=== PATIENT | female | born 2000 | race Caucasian/White ===

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

== ENCOUNTER 2018-10-27 11:08 | Emergency (ER) | payer OTHER ==
[2018-10-27 11:13] VITALS: BMI 16.9
--- NOTE | 2018-10-27 12:09 | PDOC ---
History of Present Illness - General Chief Complaint: Vaginal Bleeding Stated Complaint: LOWER ABD PAIN/Miscarriage Time Seen by Provider: 10/27/18 12:07 History Source: Patient Exam Limitations: No Limitations - History of Present Illness Initial Comments: 18 yo F presents to the ER with lower back pain and abdominal cramps after she has been passing clot like material from her vagina for the past two days since Friday. The patient has a picture of what appears to look like a passed fetus which she passed on Friday. She went to her PCP yesterday who said she is probably having a miscarriage and he referred her to Dr. reyes for an OB appointment. She came into the ER today because she wanted to confirm whether or not she was , having a miscarriage or whatever is happening in her body. She denies any nausea or vomiting but endorses lower back pain which was 10/10 on Friday when she passed the clots but is only 6/10 today. Patient is sexually active with one male partner and does not use condoms. She reports frequent STD testing and says they have all been negative. Patient does not take pre- vitamins. Patient has an appointment scheduled with Dr. reyes for . Denies recent fevers, chills, infections, dysuria, headache, or blurry vision. LMP: Aug 20 PCP: Camilo Hdez [phone] EARLY CHILDHOOD WORKER: Dr. Reyes PSH: None reported Social Hx: Denies smoking, drinking, or other substance usage. Allergies: NKA, NKDA Past History - Past Medical History Allergies/Adverse Reactions: Allergies Allergy/AdvReac Type Severity Reaction Status Date / Time No Known Allergies Allergy Verified 10/12/17 14:23 Home Medications: Ambulatory Orders NK [No Known Home Medication] 10/27/18 COPD: No Dialysis: No Hypercholesterolemia: No - Surgical History Cholecystectomy: No - Reproductive History (#): 0 - Immunization History Immunization Up to Date: Yes - Suicide/Smoking/Psychosocial Hx Smoking History: Never smoked Have you smoked in the past 12 months: No Information on smoking cessation initiated: No Hx Alcohol Use: No Drug/Substance Use Hx: No Substance Use Type: None Review of Systems - Review of Systems Able to Perform ROS?: Yes Comments:: CONSTITUTIONAL: Absent: fever, no chills, no fatigue EYES: Absent: visual changes ENT: Absent: ear pain, no sore throat CARDIOVASCULAR: Absent: chest pain, no palpitations RESPIRATORY: Absent: cough, no SOB GI: Present: Abdominal pain Absent: no nausea, no vomiting, no constipation, no diarrhea GENITOURINARY: Present: hematuria Absent: dysuria, no frequency MUSKULOSKELETAL: Present: Back pain Absent: no arthralgia, no myalgia SKIN: Absent: rash NEURO: Absent: headache *Physical Exam - Vital Signs Last Vital Signs Temp Pulse Resp BP Pulse Ox 98.7 F 71 20 112/75 100 10/27/18 11:10 10/27/18 11:10 10/27/18 11:10 10/27/18 11:10 10/27/18 11:10 - Physical Exam Comments: GENERAL: Well-appearing, well-nourished. No apparent distress. HEENT: Normocephalic, atraumatic. PERRL, EOM intact. CARDIOVASCULAR: Normal S1, S2. Regular rate and rhythm. PULMONARY: No evidence of respiratory distress. Lungs clear to auscultation bilaterally. No wheezing, rales or rhonchi. ABDOMEN: Soft, non-distended, non-tender. EXTREMITIES: Normal ROM in all four extremities. No gross deformities. SKIN: Warm, dry. No rash NEUROLOGICAL: No focal neurological deficits. Female Pelvic Exam: positive: cervical os closed, normal adnexa, normal size ovaries, discharge (blood), uterus (normal), vaginal bleeding. negative: normal external exam (There is blood on the external exam), CMT, lesions, Bartholin mass, adnexal tenderness ED Treatment Course - LABORATORY CBC & Chemistry Diagram: 10/27/18 12:32 10/27/18 12:32 - RADIOLOGY Radiograph Interpretation: TVUS: The uterus is normal in size measuring 7.4 x 5.1 x 3.4 cm. No uterine masses are seen. A normal appearing endometrium of 4 mm thickness is identified. There is a trace amount of free fluid within the endometrial cavity. The ovaries are normal in size and texture with arterial flow documented to both ovaries. There is no evidence of adnexal masses. There is a trace amount of free fluid within the cul-de- sac. IMPRESSION: 1. Trace endometrial fluid. 2. Trace free fluid within the cul-de-sac, otherwise normal pelvic sonogram. Please see above discussion. Medical Decision Making - Medical Decision Making 18 yo F presents to the ER with lower back pain and abdominal cramps after she has been passing clot like material from her vagina for the past two days since Friday. The patient has a picture of what appears to look like a passed fetus which she passed on Friday. She went to her PCP yesterday who said she is probably having a miscarriage and he referred her to Dr. reyes for an OB appointment. She came into the ER today because she wanted to confirm whether or not she was , having a miscarriage or whatever is happening in her body. She denies any nausea or vomiting but endorses lower back pain which was 10/10 on Friday when she passed the clots but is only 6/10 today. VS: WNL DDx IBNLT: - inevitable vs missed vs complete, - IUP vs ectopic, ovarian cyst/torsion, rupture, electrolyte/metabolic disturbance. Plan: Labs, Urine, TVUS, IV hydration, analgesia, OB follow up. Labs: HCG negative in urine and blood. Labs unremarkable, normal Hb. Blood Bank -Ab negative, O positive. TVUS: The uterus is normal in size measuring 7.4 x 5.1 x 3.4 cm. No uterine masses are seen. A normal appearing endometrium of 4 mm thickness is identified. There is a trace amount of free fluid within the endometrial cavity. The ovaries are normal in size and texture with arterial flow documented to both ovaries. There is no evidence of adnexal masses. There is a trace amount of free fluid within the cul-de- sac. IMPRESSION: 1. Trace endometrial fluid. 2. Trace free fluid within the cul-de-sac, otherwise normal pelvic sonogram. Please see above discussion. Patient has an appointment scheduled with Dr. reyes for . Patient feels well and her pain was relived after PO Tylenol. Will DC with return precautions and OB FU on with Dr. Reyes *DC/Admit/Observation/Transfer Diagnosis at time of Disposition: Vaginal bleeding - Discharge Dispostion Disposition: HOME Condition at time of disposition: Stable Decision to Admit order: No - Referrals Referrals: Daxa Reyes MD [Staff Physician] - - Patient Instructions Printed Discharge Instructions: DI for Vaginal Bleeding Additional Instructions: You came into the Er after you experienced bleeding from your vagina. We looked at your blood and urine and found no abnormalities. Our Lab showed us that you are not currently . Please make sure to goto your doctor's appointment with Dr. Reyes this coming to make sure your bleeding has stopped, you are not in any pain , and you are being taken care of. Come back to the ER immediately if your pain worsens, you start bleeding alot, or have any other new or worsening concerns. Thank you for coming to the [facility]. We hope you feel better soon! Print Language: GEORGIAN - Post Discharge Activity
[2018-10-27] MEDS ORDERED: SODIUM CHLORIDE 1,000 ML IV STA (12:18)
[2018-10-27] MEDS ORDERED: ACETAMINOPHEN 325 MG TABLET (FP) PO ONE (12:20)
[2018-10-27] MEDS ORDERED: ACETAMINOPHEN 325 MG TABLET (FP) ONE (12:37)
[2018-10-27 12:42] LABS: BASO % 0.4 % (0-2.0); EOS % 1.7 % (0-4.5); EPI CELLS 9.3 /HPF (0-5/HPF); HEMATOCRIT 42.3 % (32.4-45.2); HEMOGLOBIN 14.4 GM/dL (10.7-15.3); LYMPH % 37.5 % (8-40); MCHC 34.1 g/dl (32.0-36.0); MEAN CELL VOLUME 93.9 fl (80-96); MEAN PLT VOLUME 8.9 fl (7.5-11.1); MONO % 8.9 % (3.8-10.2); NEUT % 51.5 % (42.8-82.8); PH,URINE 5.5 (5.0-8.0); PLATELET COUNT 225 K/MM3 (134-434); RDW 13.7 % (11.6-15.6); URINE APPEARANCE CLEAR; URINE BACTERIA 130.9 /hpf (NEGATIVE); URINE BILIRUBIN NEGATIVE (NEGATIVE); URINE CASTS 5 /lpf (0-8); URINE COLOR YELLOW; URINE GLUCOSE (UA) NEGATIVE (NEGATIVE); URINE KETONE NEGATIVE (NEGATIVE); URINE LEUK ESTERASE TRACE (NEGATIVE); URINE NITRITE NEGATIVE (NEGATIVE); URINE PROTEIN NEGATIVE (NEGATIVE); URINE RBC 1 /hpf (0-4); URINE UROBILINOGEN 0.2 mg/dL (0.2-1.0); URINE WBC 2 /hpf (0-5); WHITE BLOOD COUNT 5.2 K/mm3 (4.0-10.0)
[2018-10-27 12:43] LABS: HCG,QUALITATIVE URINE Negative
[2018-10-27 13:02] LABS: INR 1.08 (0.83-1.09); PROTHROMBIN TIME (PATIENT) 12.8 SEC (9.7-13.0)
[2018-10-27 13:22] LABS: ALBUMIN 4.6 g/dl (3.4-5.0); ALK PHOS 89 U/L (45-117); ANION GAP 6 MMOL/L (8-16); BILIRUBIN,TOTAL 0.4 mg/dL (0.2-1); BLOOD UREA NITROGEN 11 mg/dL (7-18); CALCIUM 9.9 mg/dL (8.5-10.1); CHLORIDE 107 mmol/L (98-107); CO2 24 mmol/L (21-32); CREATININE 0.7 mg/dL (0.55-1.3); GLUCOSE,RANDOM 86 mg/dL (74-106); SGOT/AST 22 U/L (15-37); SGPT/ALT 25 U/L (13-61); SODIUM 138 mmol/L (136-145); TOT PROT 8.6 g/dl (6.4-8.2)
[2018-10-27 14:42] VITALS: BP 115/70; PULSE 68; TEMP 98.1
--- NOTE | 2018-10-27 14:45 | PDOC ---
Attending Attestation - Resident Resident Name: Harshad Sanchez - ED Attending Attestation I have performed the following: I have examined & evaluated the patient, The case was reviewed & discussed with the resident, I agree w/resident's findings & plan - HPI HPI: 10/27/18 14:43 18y/o F LMP 2/, not today with DUB with clots. - Physicial Exam PE: 10/27/18 14:43 VSS, well appearing and ambulating heart regular, lungs clear abd benign, pelvic per resident - Medical Decision Making 10/27/18 14:44 18y/o F with heavy vaginal bleeding, HD stable with benign abd exam. negative both qualitative and quantitative received control injection about 4 weeks ago, making this her likely scheduled menses evus normal has f/u arranged with Dr. Reyes, understands return criteria
== END 2018-10-27 14:44 | disposition home or self-care (01) ==
LOC: JER 11:08
PROC: 3E0337Z Introduction of Electrolytic and Water Balance Substance into Peripheral Vein, Percutaneous Approach (ICD-10-PCS; principal; 2018-10-27)
DX: N93.8 Other specified abnormal uterine and vaginal bleeding (principal)
CPT/HCPCS: 36415; 76830-TC; 80053; 81003; 84702; 84703; 85025; 85610; 86850; 86900; 86901; 96360; 99283-25; J7030

== ENCOUNTER 2018-11-20 19:02 | Emergency (ER) | payer OTHER ==
[2018-11-20 19:07] VITALS: TEMP 98.1; BMI 17.6
--- NOTE | 2018-11-20 19:07 | PDOC ---
Rapid Medical Evaluation Chief Complaint: Chest Pain Time Seen by Provider: 11/20/18 19:03 Medical Evaluation: Allergies Allergy/AdvReac Type Severity Reaction Status Date / Time No Known Allergies Allergy Verified 10/12/17 14:23 11/20/18 19:04 I have performed a brief in-person evaluation of this patient. The patient presents with a chief complaint of: chest pain with palpitations, was eating at the time - no hx of cardiac disease. Pertinent physical exam findings: tachycardic/ tearful. lungs clear I have ordered the following: UcG, EKG The patient will proceed to the ED for further evaluation. 11/20/18 19:07 Discharge Disposition - Diagnosis Tachycardia - Referrals - Patient Instructions - Post Discharge Activity
--- NOTE | 2018-11-20 21:18 | PDOC ---
History of Present Illness - History of Present Illness Initial Comments: 11/20/18 21:17 Ms. Lopez is a 18 yo female w/ pmh of HLD who presents for evaluation of 10 minute episode of palpitations with concurrent chest pain (now resolved). Patient also reports she took deep breaths along with this pain. Patient reports this happened once before a month ago. Patient denies any family history of early cardiac problems or sudden . Reports pain /palpitations have improved at this time. The patient denies headache and dizziness. Denies fever, chills, nausea, vomit, diarrhea and constipation. Denies dysuria, frequency, urgency and hematuria. <Vishal Denis - Last Filed: 11/20/18 23:49> <Lazaro Graham - Last Filed: 11/21/18 00:00> - General Chief Complaint: Tachycardia Stated Complaint: CHEST PAIN/RACING HEARTBEAT/DIFFICULTY BREATHING Time Seen by Provider: 11/20/18 19:03 Past History - Past Medical History COPD: No Dialysis: No Hypercholesterolemia: No - Surgical History Cholecystectomy: No - Reproductive History (#): 0 - Immunization History Immunization Up to Date: Yes - Suicide/Smoking/Psychosocial Hx Smoking History: Never smoked Have you smoked in the past 12 months: No Hx Alcohol Use: No Drug/Substance Use Hx: No Substance Use Type: None <Vishal Denis - Last Filed: 11/20/18 23:49> <Lazaro Graham - Last Filed: 11/21/18 00:00> - Past Medical History Allergies/Adverse Reactions: Allergies Allergy/AdvReac Type Severity Reaction Status Date / Time No Known Allergies Allergy Verified 11/20/18 19:07 Home Medications: Ambulatory Orders Nitrofurantoin Monohyd/M-Cryst [Macrobid -] 100 mg PO BID #14 capsule 11/20/18 Review of Systems - Review of Systems Comments:: 11/20/18 21:19 GENERAL/CONSTITUTIONAL: No fever or chills. No weakness. HEAD, EYES, EARS, NOSE AND THROAT: No change in vision. No ear pain or discharge. No sore throat. CARDIOVASCULAR: +Palpitations w/ "deep breaths" and chest pain as described ( now resolved) RESPIRATORY: No cough, wheezing, or hemoptysis. GASTROINTESTINAL: No nausea, vomiting, diarrhea or constipation. GENITOURINARY: No dysuria, frequency, or change in urination. MUSCULOSKELETAL: No joint or muscle swelling or pain. No neck or back pain. SKIN: No rash NEUROLOGIC: No headache, vertigo, loss of consciousness, or change in strength/ sensation. ENDOCRINE: No increased thirst. No abnormal weight change HEMATOLOGIC/LYMPHATIC: No anemia, easy bleeding, or history of blood clots. ALLERGIC/IMMUNOLOGIC: No hives or skin allergy. <Vishal Denis - Last Filed: 11/20/18 23:49> *Physical Exam - Vital Signs Last Vital Signs Temp Pulse Resp BP Pulse Ox 98.1 F 144 H 22 H 156/90 99 11/20/18 19:04 11/20/18 19:04 11/20/18 19:04 11/20/18 19:04 11/20/18 19:04 - Physical Exam Comments: 11/20/18 21:19 GENERAL: Awake, alert, and fully oriented, in no acute distress HEAD: No signs of trauma, normocephalic, atraumatic EYES: PERRLA, EOMI, sclera anicteric, conjunctiva clear ENT: Auricles normal inspection, hearing grossly normal, nares patent, oropharynx clear without exudates. Moist mucosa NECK: Normal ROM, supple, no lymphadenopathy, JVD, or masses LUNGS: No distress, speaks full sentences, clear to auscultation bilaterally HEART: Regular rate and rhythm, normal S1 and S2, no murmurs, rubs or gallops, peripheral pulses normal and equal bilaterally. ABDOMEN: Soft, nontender, normoactive bowel sounds. No guarding, no rebound. No masses EXTREMITIES: Normal inspection, Normal range of motion, no edema. No clubbing or cyanosis. NEUROLOGICAL: Cranial nerves II through XII grossly intact. Normal speech, normal gait, no focal sensorimotor deficits SKIN: Warm, Dry, normal turgor, no rashes or lesions noted. <Vishal Denis - Last Filed: 11/20/18 23:49> - Vital Signs Last Vital Signs Temp Pulse Resp BP Pulse Ox 98.1 F 81 15 122/88 98 11/20/18 19:04 11/20/18 23:05 11/20/18 23:05 11/20/18 23:05 11/20/18 23:05 <Lazaro Graham - Last Filed: 11/21/18 00:00> ED Treatment Course - LABORATORY CBC & Chemistry Diagram: 11/20/18 22:00 11/20/18 22:00 <Vishal Denis - Last Filed: 11/20/18 23:49> - LABORATORY CBC & Chemistry Diagram: 11/20/18 22:00 11/20/18 22:00 - ADDITIONAL ORDERS Additional order review: Laboratory Results 11/20/18 11/20/18 11/20/18 23:00 22:03 22:00 Sodium 139 Potassium 3.8 Chloride 110 H Carbon Dioxide 22 Anion Gap 8 BUN 16 Creatinine 0.7 Est GFR (CKD-EPI)AfAm 144.56 Est GFR (CKD-EPI)NonAf 124.72 Random Glucose 116 H Calcium 9.4 Total Bilirubin 0.3 AST 13 L ALT 24 Alkaline Phosphatase 80 Creatine Kinase 91 Troponin I < 0.02 < 0.02 Total Protein 7.3 Albumin 4.1 Urine Color Yellow Urine Appearance Cloudy Urine pH 5.5 Ur Specific [place] 1.023 Urine Protein Negative Urine Glucose (UA) Trace Urine Ketones Negative Urine Blood 3+ H Urine Nitrite Negative Urine Bilirubin Negative Urine Urobilinogen 0.2 Ur Leukocyte Esterase 3+ H Urine WBC (Auto) 116 Urine RBC (Auto) 3 Urine Casts (Auto) 48 U Epithel Cells (Auto) 6.5 Urine Bacteria (Auto) 322.3 Urine HCG, Qual Negative 11/20/18 22:00 RBC 4.13 MCV 93.4 MCHC 33.8 RDW 13.3 MPV 8.8 Neutrophils % 59.0 Lymphocytes % 31.9 Monocytes % 7.5 Eosinophils % 1.2 Basophils % 0.4 <Lazaro Graham - Last Filed: 11/21/18 00:00> Medical Decision Making - Medical Decision Making 11/20/18 21:40 Ms. Lopez is a 18 yo female w/ pmh as described who presents for evaluation of symptoms c/w ACS vs. anxiety attack vs. anemia. Patient will be evaluated with EKG and cardiac labs. 11/20/18 23:49 Patient EKG concerning for T wave inversion in V2. Patient evaluated with 2 troponins with no concerning findings; EKG unchanged. Patient noted to have UTI as below. Discussed with patient that she should f/u w/ cardiology and sent Rx for ABX to patient's pharmacy. No concern for acute process at this time. Discharging to home. Laboratory Results - last 24 hr 11/20/18 11/20/18 11/20/18 22:00 22:00 22:03 WBC 7.1 RBC 4.13 Hgb 13.0 Hct 38.6 MCV 93.4 MCH 31.6 MCHC 33.8 RDW 13.3 Plt Count 237 MPV 8.8 Absolute Neuts (auto) 4.2 Neutrophils % 59.0 Lymphocytes % 31.9 Monocytes % 7.5 Eosinophils % 1.2 Basophils % 0.4 Nucleated RBC % 0 Sodium 139 Potassium 3.8 Chloride 110 H Carbon Dioxide 22 Anion Gap 8 BUN 16 Creatinine 0.7 Est GFR (CKD-EPI)AfAm 144.56 Est GFR (CKD-EPI)NonAf 124.72 Random Glucose 116 H Calcium 9.4 Total Bilirubin 0.3 AST 13 L ALT 24 Alkaline Phosphatase 80 Creatine Kinase 91 Troponin I < 0.02 Total Protein 7.3 Albumin 4.1 Urine Color Yellow Urine Appearance Cloudy Urine pH 5.5 Ur Specific [place] 1.023 Urine Protein Negative Urine Glucose (UA) Trace Urine Ketones Negative Urine Blood 3+ H Urine Nitrite Negative Urine Bilirubin Negative Urine Urobilinogen 0.2 Ur Leukocyte Esterase 3+ H Urine WBC (Auto) 116 Urine RBC (Auto) 3 Urine Casts (Auto) 48 U Epithel Cells (Auto) 6.5 Urine Bacteria (Auto) 322.3 Urine HCG, Qual Negative 11/20/18 23:00 WBC RBC Hgb Hct MCV MCH MCHC RDW Plt Count MPV Absolute Neuts (auto) Neutrophils % Lymphocytes % Monocytes % Eosinophils % Basophils % Nucleated RBC % Sodium Potassium Chloride Carbon Dioxide Anion Gap BUN Creatinine Est GFR (CKD-EPI)AfAm Est GFR (CKD-EPI)NonAf Random Glucose Calcium Total Bilirubin AST ALT Alkaline Phosphatase Creatine Kinase Troponin I < 0.02 Total Protein Albumin Urine Color Urine Appearance Urine pH Ur Specific [place] Urine Protein Urine Glucose (UA) Urine Ketones Urine Blood Urine Nitrite Urine Bilirubin Urine Urobilinogen Ur Leukocyte Esterase Urine WBC (Auto) Urine RBC (Auto) Urine Casts (Auto) U Epithel Cells (Auto) Urine Bacteria (Auto) Urine HCG, Qual <Vishal Denis - Last Filed: 11/20/18 23:49> *DC/Admit/Observation/Transfer <Vishal Denis - Last Filed: 11/20/18 23:49> <Lazaro Graham - Last Filed: 11/21/18 00:00> Diagnosis at time of Disposition: Tachycardia Chest pain Qualifiers: Chest pain type: unspecified Qualified Code(s): R07.9 - Chest pain, unspecified - Discharge Dispostion Disposition: HOME - Prescriptions Prescriptions: Nitrofurantoin Monohyd/M-Cryst [Macrobid -] 100 mg PO BID #14 capsule - Referrals Referrals: ON STAFF,NOT [Primary Care Provider] - Jorge Og MD [Staff Physician] - - Patient Instructions Printed Discharge Instructions: DI for Urinary Tract Infection (UTI) Additional Instructions: You were evaluated today in the ER for your palpitations and found to have a UTI. We sent a prescription to your pharmacy. Please take all medications as proscribed. We also noted you to have some EKG changes and recommend you follow- up with primary care provider early next week for further evaluation. You should see a securities trader for further evaluation of your palpitations. You may need something called a "Holter monitor" to make a diagnosis. We have attached cardiology information you may use if desired to establish care. Return to ER if any further chest pain, fever, chills, or other concerning symptoms. - Post Discharge Activity
[2018-11-20 22:06] LABS: BASO % 0.4 % (0-2.0); EOS % 1.2 % (0-4.5); HEMATOCRIT 38.6 % (32.4-45.2); LYMPH % 31.9 % (8-40); MCH 31.6 pg (25.7-33.7); MCHC 33.8 g/dl (32.0-36.0); MEAN CELL VOLUME 93.4 fl (80-96); MEAN PLT VOLUME 8.8 fl (7.5-11.1); MONO % 7.5 % (3.8-10.2); PLATELET COUNT 237 K/MM3 (134-434); RBC 4.13 M/mm3 (3.60-5.2); RDW 13.3 % (11.6-15.6); WHITE BLOOD COUNT 7.1 K/mm3 (4.0-10.0)
[2018-11-20 22:12] LABS: HCG,QUALITATIVE URINE Negative
[2018-11-20 22:13] LABS: EPI CELLS 6.5 /HPF (0-5/HPF); PH,URINE 5.5 (5.0-8.0); URINE APPEARANCE CLOUDY; URINE BACTERIA 322.3 /hpf (NEGATIVE); URINE BILIRUBIN NEGATIVE (NEGATIVE); URINE CASTS 48 /lpf (0-8); URINE COLOR YELLOW; URINE GLUCOSE (UA) TRACE (NEGATIVE); URINE KETONE NEGATIVE (NEGATIVE); URINE LEUK ESTERASE 3+ (NEGATIVE); URINE NITRITE NEGATIVE (NEGATIVE); URINE PROTEIN NEGATIVE (NEGATIVE); URINE RBC 3 /hpf (0-4); URINE UROBILINOGEN 0.2 mg/dL (0.2-1.0); URINE WBC 116 /hpf (0-5)
[2018-11-20 22:35] LABS: ALBUMIN 4.1 g/dl (3.4-5.0); ALK PHOS 80 U/L (45-117); ANION GAP 8 MMOL/L (8-16); BILIRUBIN,TOTAL 0.3 mg/dL (0.2-1); BLOOD UREA NITROGEN 16 mg/dL (7-18); CALCIUM 9.4 mg/dL (8.5-10.1); CHLORIDE 110 mmol/L (98-107); CO2 22 mmol/L (21-32); CREATININE 0.7 mg/dL (0.55-1.3); GLUCOSE,RANDOM 116 mg/dL (74-106); POTASSIUM 3.8 mmol/L (3.5-5.1); SGOT/AST 13 U/L (15-37); SGPT/ALT 24 U/L (13-61); SODIUM 139 mmol/L (136-145); TOT PROT 7.3 g/dl (6.4-8.2)
--- NOTE | 2018-11-20 22:48 | PDOC ---
Documentation entered by Renée Felder SCRIBE, acting as scribe for Lazaro Graham MD. Lazaro Graham MD: This documentation has been prepared by the Emerita lora Daisy, SCRIBE, under my direction and personally reviewed by me in its entirety. I confirm that the documentation accurately reflects all work, treatment, procedures, and medical decision making performed by me. Attending Attestation - Resident Resident Name: BharathverenapaoHoraceVishal - ED Attending Attestation I have performed the following: I have examined & evaluated the patient, The case was reviewed & discussed with the resident, I agree w/resident's findings & plan, Exceptions are as noted - HPI HPI: 11/20/18 21:44 The patient is a 18YOF with a PMH of HLD who presents to the ER for evaluation of sudden onset palpitations. Pt states she was eating dinner when the symptoms started. She reports feeling her heart racing quickly. She also endorses chest pain and SOB. Denies lightheadedness or LOC. She states the symptoms lasted approximately 10 minutes and resolved on its own. Pt states this is the 3rd time she has had an episode like this. She states the first two times lasted longer than this one and felt the same. Pt's symptoms resolved in the ED prior to EKG being done. She currently has no complaints. Denies CP/SOB/palpitations. Allergies: NKDA - Physicial Exam PE: 11/20/18 22:45 "GENERAL: Awake, alert, and fully oriented, in no acute distress. HEAD: No signs of trauma EYES: PERRLA, EOMI, sclera anicteric, conjunctiva clear ENT: Auricles normal inspection, hearing grossly normal, nares patent, oropharynx clear without exudates. Moist mucosa NECK: Nontender, no stepoffs, Normal ROM, supple, no lymphadenopathy, JVD, or masses LUNGS: Breath sounds equal, clear to auscultation bilaterally. No wheezes, and no crackles HEART: Regular rate and rhythm, normal S1 and S2, no murmurs, rubs or gallops ABDOMEN: Soft, nontender, normoactive bowel sounds. No guarding, no rebound. No masses EXTREMITIES: Normal range of motion, no edema. No clubbing or cyanosis. No cords, erythema, or tenderness NEUROLOGICAL: Cranial nerves II through XII intact. 5/5 strength and sensation in all extremities, Normal speech, normal gait, normal cerebellar function SKIN: Warm, Dry, normal turgor, no rashes or lesions noted. - Medical Decision Making 11/20/18 22:45 18 F with transient episode of palpitations + CP + SOB. Suspect paroxysmal SVT or other tachyarrhythmia. Pt has no cardiac history, so ventricular arrhythmia unlikely. Pt with normal vitals in ED currently. EKG shows sinus tach at rate 101. - Labs - Tele monitor
[2018-11-20] MEDS ORDERED: NITROFURANTOIN MACROCRYSTAL 50 MG CAPSULE (FP) PO SCH (23:45)
[2018-11-20] MEDS ORDERED: NITROFURANTOIN MACROCRYSTAL 50 MG CAPSULE (FP) ONE (23:59)
[2018-11-21 00:03] VITALS: BP 115/85
[2018-11-21 00:04] VITALS: PULSE 90
--- NOTE | 2018-11-21 11:00 | EKG ---
Test Reason : Blood Pressure : / mmHG Vent. Rate : 081 BPM Atrial Rate : 081 BPM P-R Int : 148 ms QRS Dur : 088 ms QT Int : 364 ms P-R-T Axes : 049 055 048 degrees QTc Int : 422 ms NORMAL SINUS RHYTHM WITH SINUS ARRHYTHMIA INCOMPLETE RBBB WHEN COMPARED WITH ECG OF 20-NOV-2018 19:07, NO SIGNIFICANT CHANGE WAS FOUND Confirmed by COLE DOUGLASS MD ([id number]) on 11/21/2018 10:59:29 AM Referred By: Confirmed By:COLE DOUGLASS MD
--- NOTE | 2018-11-21 11:01 | EKG ---
Test Reason : Blood Pressure : / mmHG Vent. Rate : 101 BPM Atrial Rate : 101 BPM P-R Int : 142 ms QRS Dur : 080 ms QT Int : 334 ms P-R-T Axes : 056 043 041 degrees QTc Int : 433 ms SINUS TACHYCARDIA POSSIBLE LEFT ATRIAL ENLARGEMENT NONSPECIFIC T WAVE ABNORMALITY RSR' OR QR PATTERN IN V1 SUGGESTS RIGHT VENTRICULAR CONDUCTION DELAY ABNORMAL ECG NO PREVIOUS ECGS AVAILABLE Confirmed by COLE DOUGLASS MD ([id number]) on 11/21/2018 11:01:24 AM Referred By: Confirmed By:COLE DOUGLASS MD
== END 2018-11-21 00:05 | disposition home or self-care (01) ==
LOC: JER 19:02
DX: R07.9 Chest pain, unspecified (principal); R00.0 Tachycardia, unspecified
CPT/HCPCS: 36415; 80053; 81003; 82550; 84443; 84484; 84703; 85025; 87086; 87186; 93005; 93010; 99283-25

== ENCOUNTER 2019-04-01 21:35 | Emergency (ER) | payer OTHER ==
--- NOTE | 2019-04-01 21:52 | PDOC ---
Rapid Medical Evaluation Chief Complaint: Headache Time Seen by Provider: 04/01/19 21:50 Medical Evaluation: Allergies Allergy/AdvReac Type Severity Reaction Status Date / Time No Known Allergies Allergy Verified 04/01/19 21:50 04/01/19 21:50 18 year old female severe headache started an hour. patient also reports dizziness. reports some blurred vision PE; patient alert ox3 A: headache P: urine Discharge Disposition - Diagnosis Headache Qualifiers: Headache type: unspecified Headache chronicity pattern: acute headache Intractability: not intractable Qualified Code(s): R51 - Headache - Referrals - Patient Instructions - Post Discharge Activity
[2019-04-01 21:53] VITALS: BP 115/85; PULSE 86; TEMP 98.5; BMI 18.1
[2019-04-01] MEDS ORDERED: MECLIZINE HCL 25 MG TABLET (FP) PO ONE (22:39)
[2019-04-01] MEDS ORDERED: SODIUM CHLORIDE 1,000 ML IV STA (22:39)
[2019-04-01] MEDS ORDERED: KETOROLAC TROMETHAMINE 30 MG/1 ML VIAL IVPUSH ONE (22:39)
[2019-04-01] MEDS ORDERED: METOCLOPRAMIDE HCL INJECTION 10 MG/2 ML VIAL IVPUSH ONE (22:39)
--- NOTE | 2019-04-01 22:40 | PDOC ---
History of Present Illness - General Chief Complaint: Headache Stated Complaint: HEADACHE/DIZZINESS Time Seen by Provider: 04/01/19 21:50 History Source: Patient Exam Limitations: No Limitations - History of Present Illness Initial Comments: 04/01/19 22:40 HISTORY OF PRESENT ILLNESS: 18-year-old woman denies medical history resents emergency department for evaluation of brief episode of room tilting visual disturbance followed by left-sided occipital headache radiating to the frontal head. She reports this episode lasted approximately 5 minutes and then returned to baseline. After 5 minutes at baseline the headache returns Lessing for another 5 minutes. Patient's headache has been waxing and waning every 5 minutes for the past 2 hours when symptoms started. Patient reported a brief episode of nausea but did not vomit. At present patient has no headache, visual disturbances, nausea or vomiting. Patient reports she is on day 2 of her menstrual period and reports normal flow. No recent travel or sick contacts. PAST MEDICAL HISTORY: Denies past medical history SURGICAL HISTORY: Denies ALLERGIES: No known drug allergies REVIEW OF SYSTEMS General/Constitutional: Denies fever or chills. Denies weakness, weight change. HEENT: see HPI Cardiovascular: Denies chest pain or shortness of breath. Respiratory: Denies cough, wheezing, or hemoptysis. Gastrointestinal: Denies nausea, vomiting, diarrhea or constipation. Denies rectal bleeding. Genitourinary: Denies dysuria, frequency, or change in urination. Musculoskeletal: Denies joint or muscle swelling or pain. Denies neck or back pain. Skin and breasts: Denies rash or easy bruising. Neurologic: see HPI Psychiatric: Denies depression or anxiety. Endocrine: Denies increased thirst. Denies abnormal weight change. Hematologic/Lymphatic: Denies anemia, easy bleeding, or history of blood clots. Allergic/Immunologic: Denies hives or skin allergy. Denies latex allergy. PHYSICAL EXAM General Appearance: Well-appearing, appropriately dressed. No apparent distress , no intoxication. HEENT: EOMI, PERRLA, normal ENT inspection, normal voice, TMs normal, pharynx normal. No conjunctival pallor. No photophobia, scleral icterus. Neck: Supple. Trachea midline. No tenderness, rigidity, carotid bruit, stridor , lymphadenopathy, or thyromegaly. Respiratory/Chest: Lungs CTAB. No shortness of breath, chest tenderness, respiratory distress, accessory muscle use. No crackles, rales, rhonchi, stridor , wheezing, dullness Cardiovascular: RRR. S1, S2. No JVD, murmur, bradycardia, tachycardia. Vascular Pulses: Dorsalis-Pedis (R): 2+, Dorsalis-Pedis (L): 2+ Gastrointestinal/Abdominal: Normal bowel sounds. Abdomen soft, non-distended. No tenderness or rebound tenderness. No organomegaly, pulsatile mass, guarding, hernia, hepatomegaly, splenomegaly. Lymphatic: No adenopathy, tenderness. Musculoskeletal/Extremities: Normal inspection. FROM of all extremities, normal capillary refill. Pelvis Stable. No CVA tenderness. No tenderness to extremities, pedal edema, swelling, erythema or deformity. Integumentary: Appropriate color, dry, warm. No cyanosis, erythema, jaundice or rash Neurologic: plier worker II-XII intact. Fully oriented, alert. Appropriate mood/affect. Motor strength 5/5. No appreciable EOM palsy, facial droop or sensory deficit. Gait steady. 04/01/19 22:43 Past History - Past Medical History Allergies/Adverse Reactions: Allergies Allergy/AdvReac Type Severity Reaction Status Date / Time No Known Allergies Allergy Verified 04/01/19 21:50 Home Medications: Ambulatory Orders NK [No Known Home Medication] 04/01/19 COPD: No Dialysis: No Hypercholesterolemia: No - Surgical History Cholecystectomy: No - Reproductive History (#): 0 - Immunization History Immunization Up to Date: Yes - Psycho Social/Smoking Cessation Hx Smoking History: Never smoked Have you smoked in the past 12 months: No Hx Alcohol Use: No Drug/Substance Use Hx: No Substance Use Type: None *Physical Exam - Vital Signs Last Vital Signs Temp Pulse Resp BP Pulse Ox 98.5 F 86 18 115/85 99 04/01/19 21:50 04/01/19 21:50 04/01/19 21:50 04/01/19 21:50 04/01/19 21:50 ED Treatment Course - LABORATORY CBC & Chemistry Diagram: 04/01/19 23:00 04/01/19 23:00 - ADDITIONAL ORDERS Additional order review: Laboratory Results 04/01/19 22:20 Urine HCG, Qual Negative Medical Decision Making - Medical Decision Making 04/01/19 22:47 A/P: 18-year-old female with vertiginous dizziness and occipital headache currently resolved Differential diagnosis includes vertigo, complex menstrual headache. CVA/TIAs less likely given patient's age and lack of risk factors. CBC, CMP Urine Normal saline 1 L bolus Meclizine 25 mg orally Toradol 30 mg IV Reglan 10 mg IV Reassess 04/01/19 23:48 Laboratory testing is unremarkable. Patient is improved after receiving the medications. I will defer imaging at this time given normal neurologic exam and return to baseline. I discussed the physical exam findings, ancillary test results and final diagnoses with the patient. I answered all of the patient's questions. The patient was satisfied with the care received and felt comfortable with the discharge plan and treatment plan. The patient will call their primary care physician within 24 hours to arrange follow-up and will return to the Emergency Department with any new, persistent or worsening symptoms. Portions of this note have been documented using voice recognition software. As a result, errors may occur in the medical transcription process. Effort has been made to correct all grammatical and medical transcription error, but some may have been missed. Discharge - Discharge Information Problems reviewed: Yes Clinical Impression/Diagnosis: Headache Qualifiers: Headache type: unspecified Headache chronicity pattern: acute headache Intractability: not intractable Qualified Code(s): R51 - Headache Condition: Stable Disposition: HOME - Admission No - Follow up/Referral Referrals: Lisa Hdez MD [Primary Care Provider] - - Patient Discharge Instructions Additional Instructions: Take Tylenol or Motrin as needed for headaches. Keep a diary of all food to eat and activities performed prior to headaches starting. Make an appointment with your primary doctor for reevaluation within the next week. Return to emergency department for worsening headache, blurry vision, dizziness , nausea, vomiting or any other concerns. Thank you very much for for choosing us to provide emergent health care needs. - Post Discharge Activity
[2019-04-01] MEDS ORDERED: MECLIZINE HCL 25 MG TABLET (FP) ONE (23:03)
[2019-04-01] MEDS ORDERED: METOCLOPRAMIDE HCL INJECTION 10 MG/2 ML VIAL ONE (23:03)
[2019-04-01 23:07] LABS: BASO % 0.5 % (0-2.0); EOS % 2.1 % (0-4.5); HEMATOCRIT 39.5 % (32.4-45.2); HEMOGLOBIN 13.1 GM/dL (10.7-15.3); LYMPH % 37.4 % (8-40); MCH 31.7 pg (25.7-33.7); MCHC 33.2 g/dl (32.0-36.0); MEAN CELL VOLUME 95.7 fl (80-96); MEAN PLT VOLUME 9.1 fl (7.5-11.1); MONO % 8.4 % (3.8-10.2); NEUT % 51.6 % (42.8-82.8); PLATELET COUNT 247 K/MM3 (134-434); RBC 4.12 M/mm3 (3.60-5.2); RDW 13.3 % (11.6-15.6); WHITE BLOOD COUNT 6.6 K/mm3 (4.0-10.0)
[2019-04-01] MEDS ORDERED: KETOROLAC TROMETHAMINE 30 MG/1 ML VIAL ONE (23:26)
[2019-04-01 23:42] LABS: ALBUMIN 3.6 g/dl (3.4-5.0); BILIRUBIN,TOTAL 0.2 mg/dL (0.2-1); BLOOD UREA NITROGEN 17.7 mg/dL (7-18); CALCIUM 8.9 mg/dL (8.5-10.1); CREATININE 0.9 mg/dL (0.55-1.3); POTASSIUM 4.3 mmol/L (3.5-5.1); TOT PROT 7.1 g/dl (6.4-8.2)
== END 2019-04-02 | disposition home or self-care (01) ==
LOC: JER 21:35
PROC: 3E0337Z Introduction of Electrolytic and Water Balance Substance into Peripheral Vein, Percutaneous Approach (ICD-10-PCS; principal; 2019-04-01)
PROC: 3E033GC Introduction of Other Therapeutic Substance into Peripheral Vein, Percutaneous Approach (ICD-10-PCS; 2019-04-01)
DX: R51 Headache (principal)
CPT/HCPCS: 36415; 80053; 84703; 85025; 99282-25; J7030

== ENCOUNTER 2019-08-29 19:14 | Emergency (ER) | payer OTHER ==
[2019-08-29 19:54] VITALS: BP 115/72; PULSE 88; TEMP 98.1; BMI 18.5
[2019-08-29] MEDS ORDERED: diazePAM 5 MG TABLET PO ONE (20:30)
[2019-08-29] MEDS ORDERED: diazePAM 5 MG TABLET ONE (20:31)
--- NOTE | 2019-08-29 20:35 | PDOC ---
History of Present Illness - General Chief Complaint: Pain, Acute Stated Complaint: NECK PAIN Time Seen by Provider: 08/29/19 20:04 History Source: Patient Exam Limitations: No Limitations - History of Present Illness Initial Comments: 08/29/19 20:30 HISTORY OF PRESENT ILLNESS: 19-year-old otherwise healthy woman who presents emergency department for evaluation of right lateral neck pain which started yesterday. Patient reports she was handwashing her lingerie and was in an awkward position for an extended period of time. When she finished laundering her clothing she noticed that she had a stiff sensation to the right side of her neck. She denies any fevers, chills, headaches, blurry vision. No recent travel or sick contacts. PAST MEDICAL HISTORY: Denies past medical history SURGICAL HISTORY: Denies ALLERGIES: No known drug allergies REVIEW OF SYSTEMS General/Constitutional: Denies fever or chills. Denies weakness, weight change. HEENT: Denies change in vision. Denies ear pain or discharge. Denies sore throat. Cardiovascular: Denies chest pain or shortness of breath. Respiratory: Denies cough, wheezing, or hemoptysis. Gastrointestinal: Denies nausea, vomiting, diarrhea or constipation. Denies rectal bleeding. Genitourinary: Denies dysuria, frequency, or change in urination. Musculoskeletal: See HPI Skin and breasts: Denies rash or easy bruising. Neurologic: Denies headache, vertigo, loss of consciousness, or loss of sensation. Psychiatric: Denies depression or anxiety. Endocrine: Denies increased thirst. Denies abnormal weight change. Hematologic/Lymphatic: Denies anemia, easy bleeding, or history of blood clots. Allergic/Immunologic: Denies hives or skin allergy. Denies latex allergy. PHYSICAL EXAM General Appearance: Well-appearing, appropriately dressed. No apparent distress , no intoxication. HEENT: EOMI, PERRLA, normal ENT inspection, normal voice, TMs normal, pharynx normal. No conjunctival pallor. No photophobia, scleral icterus. Neck: Supple. Trachea midline. No tenderness, rigidity, carotid bruit, stridor , lymphadenopathy, or thyromegaly. Palpable muscle spasm present to the right sternocleidomastoid. Pain worsens with cervical spinal rotation towards the left. Able to flex and extend cervical spine without difficulty. Neurologic: evaluation analyst II-XII intact. Fully oriented, alert. Appropriate mood/affect. Motor strength 5/5. No appreciable EOM palsy, facial droop or sensory deficit. Past History - Past Medical History Allergies/Adverse Reactions: Allergies Allergy/AdvReac Type Severity Reaction Status Date / Time No Known Allergies Allergy Verified 08/29/19 19:54 Home Medications: Ambulatory Orders Methocarbamol [Robaxin -] 500 mg PO TID PRN #21 tablet 08/29/19 COPD: No Dialysis: No Hypercholesterolemia: No - Surgical History Cholecystectomy: No - Reproductive History (#): 0 - Immunization History Immunization Up to Date: Yes - Psycho Social/Smoking Cessation Hx Smoking History: Never smoked Have you smoked in the past 12 months: No Information on smoking cessation initiated: No Hx Alcohol Use: No Drug/Substance Use Hx: No Substance Use Type: None *Physical Exam - Vital Signs Last Vital Signs Temp Pulse Resp BP Pulse Ox 98.1 F 88 17 115/72 100 08/29/19 19:52 08/29/19 19:52 08/29/19 19:52 08/29/19 19:52 08/29/19 19:52 Medical Decision Making - Medical Decision Making 08/29/19 20:34 A/P: 19-year-old woman with right lateral neck pain after washing her lingerie Palpable muscle spasm present to the right sternocleidomastoid. Able to flex and extend spine without difficulty. Pain worsens with left lateral rotation of the cervical spine. Valium 5 mg orally now Discharge home with prescription for Robaxin and instructions to take nonsteroidal anti-inflammatory medication. I discussed the physical exam findings, ancillary test results and final diagnoses with the patient. I answered all of the patient's questions. The patient was satisfied with the care received and felt comfortable with the discharge plan and treatment plan. The patient will call their primary care physician within 24 hours to arrange follow-up and will return to the Emergency Department with any new, persistent or worsening symptoms. Portions of this note have been documented using voice recognition software. As a result, errors may occur in the radio tower technician process. Effort has been made to correct all grammatical and radio tower technician error, but some may have been missed which may produce sporadic inaccurate radio tower technician or nonsensical phrases. Discharge - Discharge Information Problems reviewed: Yes Clinical Impression/Diagnosis: Torticollis, acquired Condition: Stable Disposition: HOME - Admission No - Additional Discharge Information Prescriptions: Methocarbamol [Robaxin -] 500 mg PO TID PRN #21 tablet PRN Reason: Muscle Spasms - Follow up/Referral Referrals: Courtney Garza DO [Primary Care Provider] - - Patient Discharge Instructions Additional Instructions: Rest, no heavy lifting or exercise until pain is resolved Hot soaks to neck and low back as often as possible/hot showers or Jacuzzis No massage or therapy until spasm is gone Continue naproxen 2-220 mg tablets every 12 hours for the next 3 days then as needed for pain and swelling Robaxin 1500mg every 8 hours as needed for spasm If not significant improvement within 24 hours with medication and rest regime, followup with private physician for change in medications and /or therapy. - Post Discharge Activity Work/Back to School Note: Back to School
== END 2019-08-29 20:40 | disposition home or self-care (01) ==
LOC: JERFT 19:14
DX: M43.6 Torticollis (principal)
CPT/HCPCS: 99283-25

== ENCOUNTER 2020-01-05 16:43 | Emergency (ER) | payer OTHER ==
--- NOTE | 2020-01-05 16:50 | PDOC ---
Rapid Medical Evaluation Time Seen by Provider: 01/05/20 16:46 Medical Evaluation: Allergies Allergy/AdvReac Type Severity Reaction Status Date / Time No Known Allergies Allergy Verified 08/29/19 19:54 19 year old female no pmhx complaining of burning on urination since today. Complaining of hematuria and dysuria and chills. Sexually active denies discharge. Denies fever, CP, SOB PE Differed Plan: UA UC G&C Pt moved to ED for further eval 01/05/20 16:46
[2020-01-05 16:54] VITALS: BP 124/82; PULSE 87; TEMP 98.3; BMI 18.5
--- NOTE | 2020-01-05 16:59 | PDOC ---
History of Present Illness - General Chief Complaint: Urinary Problem Stated Complaint: UTI Time Seen by Provider: 01/05/20 16:46 History Source: Patient - History of Present Illness Timing/Duration: reports: constant Past History - Medical History Allergies/Adverse Reactions: Allergies Allergy/AdvReac Type Severity Reaction Status Date / Time No Known Allergies Allergy Verified 01/05/20 16:48 Home Medications: Ambulatory Orders Methocarbamol [Robaxin -] 500 mg PO TID PRN #21 tablet 08/29/19 Nitrofurantoin Monohyd/M-Cryst [Macrobid -] 100 mg PO BID #14 capsule 01/05/20 COPD: No Dialysis: No Hypercholesterolemia: No Other medical history: DENIES - Surgical History Cholecystectomy: No - Reproductive History (#): 0 - Immunization History Immunization Up to Date: Yes - Psycho-Social/Smoking History Smoking History: Never smoked Have you smoked in the past 12 months: No - Substance Abuse Hx (Audit-C & DAST Scrn) How often the patient has a drink containing alcohol: Never Score: In Men: 4 or > Positive; In Women: 3 or > Positive: 0 Screen Result (Pos requires Nsg. Audit-10AR): Negative In the last yr the pt used illegal drug/Rx for NonMed reason: No Score: Yes response is considered Positive: 0 Screen Result (Positive result requires Nsg. DAST-10): Negative Review of Systems - Review of Systems Constitutional: No: Chills, Fever ABD/GI: No: Nausea, Vomiting : Yes: Dysuria, Frequency, Hematuria. No: Discharge, Flank Pain Musculoskeletal: No: Back Pain *Physical Exam - Vital Signs Last Vital Signs Temp Pulse Resp BP Pulse Ox 98.3 F 87 20 124/82 100 01/05/20 16:48 01/05/20 16:48 01/05/20 16:48 01/05/20 16:48 01/05/20 16:48 - Physical Exam General Appearance: Yes: Appropriately Dressed. No: Apparent Distress HEENT: positive: Normal Voice Neck: positive: Supple Respiratory/Chest: negative: Respiratory Distress Gastrointestinal/Abdominal: positive: Soft. negative: Tender Musculoskeletal: negative: CVA Tenderness Integumentary: positive: Dry, Warm Neurologic: positive: Fully Oriented, Alert, Normal Mood/Affect Medical Decision Making - Medical Decision Making 01/05/20 17:28 19 yo F, recurremt uti, here w/ dysuria w/ ? hematuria this am. No flank pain, n/v/f/c see exam UTI No e/o pyelo Dc w/ abx (prior sen reviewed) To return as needed Discharge - Discharge Information Problems reviewed: Yes Clinical Impression/Diagnosis: Dysuria Condition: Good Disposition: HOME - Additional Discharge Information Prescriptions: Nitrofurantoin Monohyd/M-Cryst [Macrobid -] 100 mg PO BID #14 capsule - Follow up/Referral Referrals: Courtney Garza DO [Primary Care Provider] - - Patient Discharge Instructions Patient Printed Discharge Instructions: Urinary Tract Infection Additional Instructions: Take medications as directed and return as needed - Post Discharge Activity
[2020-01-05 17:25] LABS: EPI CELLS 13 /uL (0-25.1); HYALINE CASTS 2 /uL (0-3.1); URINE APPEARANCE CLOUDY; URINE BACTERIA 404 /uL (0-1359); URINE BILIRUBIN NEGATIVE (NEGATIVE); URINE COLOR YELLOW; URINE GLUCOSE (UA) NEGATIVE (NEGATIVE); URINE KETONE NEGATIVE (NEGATIVE); URINE LEUK ESTERASE 2+ (NEGATIVE); URINE NITRITE NEGATIVE (NEGATIVE); URINE PROTEIN 1+ (NEGATIVE); URINE RBC 2616 /uL (0-23.9); URINE WBC 1992 /uL (0-25.8)
== END 2020-01-05 17:30 | disposition home or self-care (01) ==
LOC: JERFT 16:43 → JER 16:43 → JERFT 17:30
DX: R30.0 Dysuria (principal)
CPT/HCPCS: 36415; 81003; 84703; 87086; 87491; 87591; 99283-25

== ENCOUNTER 2020-09-15 03:17 | Emergency (ER) | payer OTHER ==
[2020-09-15 03:48] VITALS: BP 112/78; PULSE 77; TEMP 98.6; BMI 18.9
[2020-09-15 04:13] LABS: EPI CELLS 5 /uL (0-25.1); HYALINE CASTS 29 /uL (0-3.1); URINE APPEARANCE CLEAR; URINE BACTERIA 243 /uL (0-1359); URINE BILIRUBIN NEGATIVE (NEGATIVE); URINE COLOR YELLOW; URINE GLUCOSE (UA) NEGATIVE (NEGATIVE); URINE KETONE NEGATIVE (NEGATIVE); URINE LEUK ESTERASE 2+ (NEGATIVE); URINE NITRITE NEGATIVE (NEGATIVE); URINE PROTEIN NEGATIVE (NEGATIVE); URINE RBC 10 /uL (0-23.9); URINE WBC 561 /uL (0-25.8)
[2020-09-15] MEDS ORDERED: CEPHALEXIN MONOHYDRATE 250 MG CAPSULE (FP) PO ONE (04:24)
[2020-09-15] MEDS ORDERED: CEPHALEXIN MONOHYDRATE 250 MG CAPSULE (FP) ONE (04:33)
[2020-09-15] MEDS ORDERED: ACETAMINOPHEN 325 MG TABLET (FP) ONE (04:39)
[2020-09-15] MEDS ORDERED: ACETAMINOPHEN 325 MG TABLET (FP) PO ONE (04:40)
== END 2020-09-15 04:41 | disposition home or self-care (01) ==
LOC: JER 03:17
DX: N39.0 Urinary tract infection, site not specified (principal)
CPT/HCPCS: 81003; 87086; 99284-25

== ENCOUNTER 2020-10-30 23:54 | Emergency (ER) | payer OTHER ==
[2020-10-31 00:51] VITALS: BMI 18.5
[2020-10-31] MEDS ORDERED: ACETAMINOPHEN 325 MG TABLET (FP) PO ONE (01:38)
[2020-10-31] MEDS ORDERED: ACETAMINOPHEN 325 MG TABLET (FP) ONE (01:53)
[2020-10-31 02:20] LABS: EPI CELLS 31 /uL (0-25.1); HYALINE CASTS 3 /uL (0-3.1); PH,URINE 5.5 (5.0-8.0); URINE APPEARANCE CLEAR; URINE BACTERIA 5294 /uL (0-1359); URINE BILIRUBIN NEGATIVE (NEGATIVE); URINE COLOR YELLOW; URINE GLUCOSE (UA) NEGATIVE (NEGATIVE); URINE KETONE TRACE (NEGATIVE); URINE LEUK ESTERASE 2+ (NEGATIVE); URINE NITRITE NEGATIVE (NEGATIVE); URINE PROTEIN NEGATIVE (NEGATIVE); URINE RBC 10 /uL (0-23.9); URINE UROBILINOGEN 0.2 mg/dL (0.2-1.0); URINE WBC 92 /uL (0-25.8)
[2020-10-31 03:16] LABS: EPI CELLS 10 /uL (0-25.1); HYALINE CASTS 0 /uL (0-3.1); URINE APPEARANCE CLEAR; URINE BACTERIA 11 /uL (0-1359); URINE BILIRUBIN NEGATIVE (NEGATIVE); URINE COLOR YELLOW; URINE GLUCOSE (UA) NEGATIVE (NEGATIVE); URINE KETONE NEGATIVE (NEGATIVE); URINE LEUK ESTERASE NEGATIVE (NEGATIVE); URINE NITRITE NEGATIVE (NEGATIVE); URINE PROTEIN NEGATIVE (NEGATIVE); URINE RBC 9 /uL (0-23.9); URINE UROBILINOGEN 0.2 mg/dL (0.2-1.0); URINE WBC 17 /uL (0-25.8)
[2020-10-31] MEDS ORDERED: CEFTRIAXONE 1 GM in DEXTROSE 5%-WATER - 50 ML IVPB ONE (03:47)
[2020-10-31] MEDS ORDERED: SODIUM CHLORIDE 0.9% 500 ML INFUS.BAG IV ONE (03:47)
[2020-10-31] MEDS ORDERED: CEFTRIAXONE 1 GM/50 ML BAG ONE (05:22)
[2020-10-31 05:23] LABS: BASO % 0.4 % (0-2.0); EOS % 1.9 % (0-4.5); HEMOGLOBIN 11.9 GM/dL (10.7-15.3); LYMPH % 31.2 % (8-40); MCH 33.1 pg (25.7-33.7); MEAN CELL VOLUME 94.6 fl (80-96); MEAN PLT VOLUME 9.1 fl (7.5-11.1); MONO % 9.2 % (3.8-10.2); NEUT % 57.3 % (42.8-82.8); PLATELET COUNT 222 K/MM3 (134-434); RBC 3.59 M/mm3 (3.60-5.2); RDW 12.6 % (11.6-15.6)
[2020-10-31 05:45] LABS: ALBUMIN 3.2 g/dl (3.4-5.0); BLOOD UREA NITROGEN 11.4 mg/dL (7-18); CALCIUM 9.3 mg/dL (8.5-10.1)
[2020-10-31 05:48] LABS: CREATININE 0.6 mg/dL (0.55-1.3)
[2020-10-31 05:50] LABS: BILIRUBIN,TOTAL 0.2 mg/dL (0.2-1); TOT PROT 6.5 g/dl (6.4-8.2)
[2020-10-31 12:03] VITALS: BP 102/72; PULSE 82; TEMP 97.8
== END 2020-10-31 11:20 | disposition home or self-care (01) ==
LOC: JER 23:54
DX: O23.42 Unspecified infection of urinary tract in pregnancy, second trimester (principal); Z3A.14 14 weeks gestation of pregnancy
CPT/HCPCS: 36415; 76815-TC; 80053; 81003; 85025; 87086; 99285-25

== ENCOUNTER 2021-03-05 20:15 | Observation (INO) | payer OTHER ==
[2021-03-05] MEDS ORDERED: DEXTROSE 5%-LACTATED RINGERS 500 ML IV SCH (22:00)
[2021-03-05] MEDS ORDERED: ZOLPIDEM TARTRATE 5 MG TABLET PO ONE (23:25)
[2021-03-05] MEDS ORDERED: ZOLPIDEM TARTRATE 5 MG TABLET ONE (23:46)
[2021-03-05 23:50] LABS: BASO % 0.3 % (0-2.0); EOS % 0.9 % (0-4.5); HEMATOCRIT 28.1 % (32.4-45.2); HEMOGLOBIN 9.4 GM/dL (10.7-15.3); LYMPH % 21.7 % (8-40); MCH 29.8 pg (25.7-33.7); MCHC 33.3 g/dl (32.0-36.0); MEAN CELL VOLUME 89.4 fl (80-96); MEAN PLT VOLUME 8.8 fl (7.5-11.1); MONO % 9.5 % (3.8-10.2); NEUT % 67.6 % (42.8-82.8); PLATELET COUNT 185 10^3/uL (134-434); RBC 3.15 M/mm3 (3.60-5.2); RDW 14.4 % (11.6-15.6); WHITE BLOOD COUNT 5.9 K/mm3 (4.0-10.0)
[2021-03-05 23:57] LABS: PROTHROMBIN TIME (PATIENT) 12.1 SEC (9.7-13.0)
[2021-03-06] LABS: ACTIVATED PTT 25.7 SECONDS (25.2-36.5)
[2021-03-06] MEDS ORDERED: DEXTROSE 5%-LACTATED RINGERS 1,000 ML IV SCH (02:00)
[2021-03-06 05:29] VITALS: BMI 22.2
[2021-03-06] MEDS ORDERED: BETAMET ACET/BETAMET NA PH 30 MG/5 ML VIAL IM ONE (07:21)
[2021-03-06 08:11] VITALS: BP 110/68; PULSE 97; TEMP 97.6
[2021-03-06 09:58] LABS: BASO % 0.1 % (0-2.0); EOS % 0.3 % (0-4.5); HEMATOCRIT 29.9 % (32.4-45.2); HEMOGLOBIN 10.1 GM/dL (10.7-15.3); LYMPH % 11.6 % (8-40); MCH 30.5 pg (25.7-33.7); MCHC 33.9 g/dl (32.0-36.0); MEAN CELL VOLUME 89.9 fl (80-96); MONO % 4.4 % (3.8-10.2); NEUT % 83.6 % (42.8-82.8); PLATELET COUNT 191 10^3/uL (134-434); RBC 3.33 M/mm3 (3.60-5.2); RDW 14.1 % (11.6-15.6); WHITE BLOOD COUNT 6.5 K/mm3 (4.0-10.0)
[2021-03-06 10:06] LABS: INR 0.98 (0.83-1.09); PROTHROMBIN TIME (PATIENT) 12.1 SEC (9.7-13.0)
[2021-03-06 10:09] LABS: ACTIVATED PTT 26.5 SECONDS (25.2-36.5)
== END 2021-03-06 10:15 | disposition home or self-care (01) ==
LOC: JDEL 20:15 → JLDR 23:25
PROVIDERS: ADMIT Obstetrics & Gynecology; ATTEND Obstetrics & Gynecology
PROC: 3E0233Z Introduction of Anti-inflammatory into Muscle, Percutaneous Approach (ICD-10-PCS; principal; 2021-03-05)
PROC: 3E0337Z Introduction of Electrolytic and Water Balance Substance into Peripheral Vein, Percutaneous Approach (ICD-10-PCS; 2021-03-05)
DX: O47.00 False labor before 37 completed weeks of gestation, unspecified trimester (principal); Z3A.32 32 weeks gestation of pregnancy; W18.39XA Other fall on same level, initial encounter; S80.211A Abrasion, right knee, initial encounter; Y93.89 Activity, other specified; Y92.89 Other specified places as the place of occurrence of the external cause
CPT/HCPCS: 36415; 59025; 76817-TC; 76819-TC; 85025; 85384; 85610; 85730; 96372; G0378

== ENCOUNTER 2021-04-13 11:23 | Inpatient (IN) | payer OTHER ==
[2021-04-13 12:29] VITALS: BMI 23.2
[2021-04-13] MEDS ORDERED: BUTORPHANOL TARTRATE 1 MG/ML VIAL IVPB PRN ×2 (13:22)
[2021-04-13] MEDS ORDERED: PROMETHAZINE HCL 25 MG/1 ML VIAL IVPB ONE (13:22)
[2021-04-13] MEDS ORDERED: AMPICILLIN - 2 GM in SODIUM CHLORIDE 100 ML IVPB ONE (13:30)
[2021-04-13] MEDS ORDERED: ELECTROLYTE-148 SOLN 1,000 ML IV SCH (13:30)
[2021-04-13 13:32] LABS: BASO % 0.3 % (0-2.0); EOS % 0.3 % (0-4.5); HEMATOCRIT 29.3 % (32.4-45.2); HEMOGLOBIN 9.7 GM/dL (10.7-15.3); LYMPH % 11.9 % (8-40); MCH 28.2 pg (25.7-33.7); MCHC 33.1 g/dl (32.0-36.0); MEAN CELL VOLUME 85.2 fl (80-96); MEAN PLT VOLUME 9.2 fl (7.5-11.1); MONO % 6.9 % (3.8-10.2); NEUT % 80.6 % (42.8-82.8); PLATELET COUNT 185 10^3/uL (134-434); RBC 3.44 M/mm3 (3.60-5.2); RDW 15.7 % (11.6-15.6); WHITE BLOOD COUNT 6.2 K/mm3 (4.0-10.0)
[2021-04-13 13:37] LABS: INR 0.93 (0.83-1.09); PROTHROMBIN TIME (PATIENT) 11.3 SEC (9.7-13.0)
[2021-04-13 13:40] LABS: ACTIVATED PTT 24.5 SECONDS (25.2-36.5)
[2021-04-13 13:50] LABS: CALCIUM 8.6 mg/dL (8.5-10.1)
[2021-04-13 13:51] LABS: BLOOD UREA NITROGEN 7.5 mg/dL (7-18)
[2021-04-13 13:54] LABS: CREATININE 0.5 mg/dL (0.55-1.3)
[2021-04-13] MEDS ORDERED: FENTANYL/BUPIVACAINE/NS/PF - PCEA - 50 ML DISP.SYRIN EP ONE (14:25)
[2021-04-13] MEDS ORDERED: PCA PUMP NR ONE (14:25)
[2021-04-13] MEDS ORDERED: NALOXONE HCL 0.4 MG/ML VIAL IVPUSH PRN (15:32)
[2021-04-13] MEDS ORDERED: AMPICILLIN SODIUM 2 GM VIAL ONE (15:37)
[2021-04-13] MEDS ORDERED: OXYTOCIN 20 UNITS in 0.9% NS 20 UNIT/1,000 ML INFUS.BAG IV ONE ×2 (15:37→20:33)
[2021-04-13] MEDS ORDERED: FENTANYL/BUPIVACAINE/NS/PF - PCEA - 50 ML DISP.SYRIN EP SCH (15:45)
[2021-04-13] MEDS ORDERED: AMPICILLIN - 1 GM in SODIUM CHLORIDE 100 ML IVPB SCH (17:30)
[2021-04-13] MEDS ORDERED: AMPICILLIN SODIUM 1 GM VIAL ONE (17:46)
[2021-04-13] MEDS ORDERED: BENZOCAINE 28 GM HEMORRHOIDAL OINTMENT TP PRN (19:13)
[2021-04-13] MEDS ORDERED: WITCH HAZEL 50% (TUCKS) 40 PAD/JAR PAD TP PRN (19:13)
[2021-04-13] MEDS ORDERED: BISACODYL 10 MG SUPP.RECT RC PRN (19:13)
[2021-04-13] MEDS ORDERED: ACETAMINOPHEN 325 MG TABLET (FP) PO PRN (19:13)
[2021-04-13] MEDS ORDERED: METHYLERGONOVINE MALEATE 0.2 MG/1 ML AMP IM PRN (19:13)
[2021-04-13] MEDS ORDERED: oxyCODONE HCL 5 MG TABLET PO PRN (19:13)
[2021-04-13] MEDS ORDERED: BENZOCAINE 20% 57 GM BOTTLE TP PRN (19:13)
[2021-04-13] MEDS ORDERED: OXYTOCIN 20 UNITS in 0.9% NS 20 UNIT/1,000 ML INFUS.BAG IV SCH (19:15)
[2021-04-14] MEDS: IBUPROFEN 600 MG TABLET (FP) PO PRN ×2 (02:02→20:48)
[2021-04-14 07:52] LABS: BASO % 0.1 % (0-2.0); EOS % 0.4 % (0-4.5); HEMATOCRIT 25.3 % (32.4-45.2); HEMOGLOBIN 8.4 GM/dL (10.7-15.3); LYMPH % 13.5 % (8-40); MCH 27.8 pg (25.7-33.7); MEAN CELL VOLUME 84.2 fl (80-96); MEAN PLT VOLUME 9.2 fl (7.5-11.1); PLATELET COUNT 194 10^3/uL (134-434); RBC 3.01 M/mm3 (3.60-5.2); RDW 15.9 % (11.6-15.6); WHITE BLOOD COUNT 12.9 K/mm3 (4.0-10.0)
[2021-04-14] MEDS: PRENATAL VITAMINS W/ FOLIC ACID TABLET (FP) PO SCH (11:45)
[2021-04-14 20:53] VITALS: PULSE 93; TEMP 98.3
[2021-04-14] MEDS ORDERED: SENNOSIDES/DOCUSATE COMBO (SENNA PLUS) TABLET (UD) PO PRN (22:00)
[2021-04-15] MEDS: PRENATAL VITAMINS W/ FOLIC ACID TABLET (FP) PO SCH (09:23)
[2021-04-15] MEDS: IBUPROFEN 600 MG TABLET (FP) PO PRN (09:23)
[2021-04-15 09:28] VITALS: BP 120/80
== END 2021-04-15 13:30 | disposition home or self-care (01) | DRG 560 ==
LOC: JDEL 11:23 → JLDR 12:00 → J3W 20:55
PROVIDERS: ADMIT Obstetrics & Gynecology; ATTEND Obstetrics & Gynecology
PROC: 10E0XZZ Delivery of Products of Conception, External Approach (ICD-10-PCS; principal; 2021-04-13)
PROC: 0W8NXZZ Division of Female Perineum, External Approach (ICD-10-PCS; 2021-04-13)
PROC: 0HQ9XZZ Repair Perineum Skin, External Approach (ICD-10-PCS; 2021-04-13)
DX: O42.02 Full-term premature rupture of membranes, onset of labor within 24 hours of rupture (principal); O98.52 Other viral diseases complicating childbirth; U07.1 COVID-19; O70.0 First degree perineal laceration during delivery; Z3A.37 37 weeks gestation of pregnancy; Z37.0 Single live birth
CPT/HCPCS: 36415; 59409; 80048; 85025; 85610; 85730; 86780; 86850; 86900; 86901; C9803; U0003; U0005

== ENCOUNTER 2022-06-02 21:49 | Emergency (ER) | payer OTHER ==
[2022-06-02 22:36] VITALS: BP 113/71; PULSE 102; RESP 20; TEMP 98.7; BMI 19.3
[2022-06-02] MEDS ORDERED: IBUPROFEN 600 MG TABLET (FP) PO ONE (23:58)
[2022-06-03] MEDS ORDERED: IBUPROFEN 600 MG TABLET (FP) PO ONE (00:16)
== END 2022-06-03 01:45 | disposition home or self-care (01) ==
LOC: JER 21:49
DX: B34.9 Viral infection, unspecified (principal)
CPT/HCPCS: 0241U-QW; 71046-TC-FY; 99284-25